=== PATIENT | male | born 1980 | race African-American/Black ===

== ENCOUNTER 2020-01-23 19:27 | Emergency (ER) | payer BC, SELFPAY ==
[2020-01-23 19:37] VITALS: BP 138/74; PULSE 110; RESP 16; TEMP 37.1; O2SAT 100
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
[2020-01-23] MEDS: cefTRIAXone 250 MG VIAL IM (19:59)
[2020-01-23] MEDS: LIDOCAINE HCL 1% LOCAL INJ 20 ML VIAL INFILTRATE (20:00)
[2020-01-23] MEDS: AZITHROMYCIN 250 MG TABLET 1000 MG PO (20:01)
--- NOTE | 2020-01-23 20:01 | PC.NURSE ---
NO UC ORDERED PER FABIENNE
[2020-01-23 20:30] VITALS: PULSE 80
== END 2020-01-23 20:30 | disposition home or self-care (01) ==
PROVIDERS: Emergency Provider Nurse Practitioner Family
DX: R30.0 Dysuria (principal); R35.0 Frequency of micturition; R39.15 Urgency of urination; F17.210 Nicotine dependence, cigarettes, uncomplicated
CPT/HCPCS: 81003; 87491; 87591; 87661; 96372; 99213; A9270; G0463; J0696